=== PATIENT | male | born 1985 | race Caucasian/White ===

== ENCOUNTER 2021-04-21 07:10 | Outpatient (CLI) | payer MEDICAID, SELFPAY ==
--- NOTE | 2021-04-21 09:30 | RT.EKG_ITS ---
APPROVED REPORT Exam: Resting ECG Reason for Exam: High Risk Medication Patient Location: O HR:72 bpm ECG Measurements Heart Rate 72 AXIS [place] 124 P 57 QRSd 84 QRS 52 QT 385 T 42 QTc 423 Conclusion Sinus rhythm...normal P axis, V-rate 60- 99 Probable left atrial enlargement...P >50mS, <-0.10mV V1
== END 2021-04-21 07:11 | disposition home or self-care (01) ==
LOC: RT 07:12
PROVIDERS: Visit Provider Family Medicine
DX: Z79.899 Other long term (current) drug therapy (principal)
CPT/HCPCS: 93005; 93010